=== PATIENT | female | born 1995 | race Caucasian/White ===

== ENCOUNTER 2020-06-08 21:09 | Emergency (ER) | payer BC, SELFPAY ==
[2020-06-08 21:13] VITALS: BP 133/88; PULSE 91; RESP 18; TEMP 37.2; O2SAT 98
--- NOTE | 2020-06-08 21:15 | DI.CT_ITS ---
EXAM: CT ABDOMEN PELVIS W INDICATION: left flank pain, recent uroscopy. COMPARISON: No exams were available for comparison TECHNIQUE: FINDINGS: CT examination of the abdomen and pelvis was performed with a bolus infusion of 100 cc of Omnipaque 3 50. Images obtained through the lung bases are unremarkable. Liver, spleen and pancreas appear normal . Gallbladder and bile ducts are CT normal. The adrenals appear normal bilaterally. Right kidney is normal. No right urinary tract calcificatio n or obstruction. On the left there is moderate hydronephrosis and there is a UPJ/proximal ureteral 3 millimeter obstru cting stone. No additional calcification seen. Urinary bladder is essentially empty.. Abdominal aorta is of normal diameter and no major vascular abnormality is seen. No abdominal wall hernia. No abdominal or pelvic adenopathy. LITIGATION SECRETARY structures appear intact. Appendix is normal. No evidence of diverticulitis or bowel obstruction. IMPRESSION: 3 millimeter left UPJ obstructing stone with moderate left hydronephrosis. No additional significant findings. RADIATION DOSE DELIVERED: 1,123.83mGy.cm Total DLP
--- NOTE | 2020-06-08 21:19 | W.ED.GENAD ---
Discharge Plan Disposition Patient Disposition: SANDRA OLIVEIRA ([facility]) Condition: Stable Discharge Details Chief Complaint: Abd Prob Clinical Impression: Kidney stone on left side, Urinary tract infection, Acute left flank pain ED Provider: Eugenio Fish Medical Decision Making 25-year-old female with a past medical history of recent suspected left-sided kidney stone and exploratory uroscopy at [facility] just this afternoon. She was discharged, she states that while there they did not find a stone, and think it might have passed. She states that they did give Dilaudid and Vicodin while there, and she has been taking the Vicodin as directed but acutely this evening while in our area the pain got acutely worse. She presented to the ER for further evaluation. Pain is in the left flank. She denies nausea vomiting or diarrhea. She denies fever or chills. She denies any other complaints at this time. She states that the pain is notably severe. She denies any vaginal discharge, or other urinary abnormalities. She has been taking Azo, and does note some discoloration in her urine. She denies any other complaints or modifying factors. Physical exam demonstrates evidence of left-sided flank tenderness, and left-sided abdominal tenderness. Vital signs notably stable. Reassuring. Differential at this time includes irritation secondary to exploratory uroscopy, new or less likely kidney stone, diverticulitis. We will get a CT scan, review records from [facility], manage the patient's pain, gently rehydrate and reassess. 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 Currently they are unable to get a hold of their on-call urologist Dr. Daniel. Unfortunately we also were unable to get a hold of our urologist Dr. Zhu here. Patient has specifically requested transfer to [facility] over [facility]. 10:20 PM Laboratory work-up shows a white count of 16, notable left shift. Renal function stable with creatinine does appear slightly high at 1.23. Urinalysis shows moderate leuk esterase, 20 WBCs, 50 RBCs, but is also nitrite and leukoesterase positive. With the patient's elevated white count, clear source of infection, mild tachycardia, the patient does meet Sirs/sepsis criteria. CAT scan has returned and demonstrates evidence of a 3 mm obstructing stone with evidence of mild to moderate hydronephrosis. Review demonstrates small amount of fat stranding as well. This is obviously concerning for an impacted/obstructed stone with infection. The patient does have an allergy to penicillins, amoxicillin, Flagyl. We will choose Levaquin for infection treatment. 750 mg IV. With no urology available here or at [facility], we did reach out and contact [facility] as well, and they state that they are currently full unable to accept any transfers. Patient has specifically requested transfer to the [facility] over [facility]. I have contacted the [facility] also at the patient's preference and request, and spoke with the ER physician first Dr. Gonzalez, and he requests we speak with neurology. I contacted , and after a prolonged discussion about the patient's findings, the criterion which she needs, the evidence of the stone, he has graciously accepted the patient for evaluation and treatment at the [facility]. Patient will be transferred by [facility]. I have extensively reviewed the treatment plan with the patient. I have addressed all patient concerns at this time. I have also discussed the plan with the admitting physician and they agree with the current assessment and plan and have agreed to assume responsibility for the patient. All parties demonstrate verbal understanding and agreement with our assessment and plan at this time. At time of transfer the patient was reassessed and continued to demonstrate current stability. No signs of acute respiratory distress requiring intubation, hemodynamic instability requiring pressor support, or rapidly declining mental status. The patient is stable for transport. FINDINGS: The lung bases are clear. The visualized bony structures are unremarkable. There is mild fatty infiltration of the liver. There is no liver mass. There is no intrahepatic biliary dilatation. No gallstones are seen within the gallbladder. The pancreas is unremarkable. The spleen is unremarkable. There is no adrenal mass. The right kidney is normal. There is mild hydronephrosis of the left kidney. No mass or calculi are seen. There is mild perinephric fat stranding. There is a 3 mm calculus involving the left proximal ureter. No additional ureteral calculi are seen. The bladder is nondistended. The aorta is normal in caliber. The IVC is normal in caliber. There is no retroperitoneal adenopathy. There is no mesenteric adenopathy. The stomach is unremarkable. The small bowel loops in the upper abdomen are nondistended with no bowel wall thickening. There is fluid seen throughout the colonic structures which can be seen with ileus. There is no thickening of the wall of the ascending, transverse or descending colons. Within the pelvis: A normal appendix is seen within the right lower quadrant. The uterus is unremarkable. There is a 2.4 cm left ovarian cyst. Several small right ovarian cysts are present. There is no free fluid within the pelvis. There is no inguinal adenopathy. There is no pelvic adenopathy. The rectosigmoid colon is unremarkable. IMPRESSION: 1. 3 mm calculus involving the left proximal ureter producing mild hydronephrosis of the left kidney. 2. Mild fatty infiltration of the liver. 3. Some distention of the right colon with fluid suggesting ileus. No evidence for bowel obstruction. 4. Small ovarian cysts. Thank you for allowing us to participate in the care of your patient. Dictated and Authenticated by: Garfield Coleman MD 06/08/2020 10:05 PM Eastern Time ([place] & [place]) HPI General Date/Time Provider Initiated Documentation: 06/08/20 21:15. HPI Narrative: 25-year-old female with a past medical history of recent suspected left-sided kidney stone and exploratory uroscopy at [facility] just this afternoon. She was discharged, she states that while there they did not find a stone, and think it might have passed. She states that they did give Dilaudid and Vicodin while there, and she has been taking the Vicodin as directed but acutely this evening while in our area the pain got acutely worse. She presented to the ER for further evaluation. Pain is in the left flank. She denies nausea vomiting or diarrhea. She denies fever or chills. She denies any other complaints at this time. She states that the pain is notably severe. She denies any vaginal discharge, or other urinary abnormalities. She has been taking Azo, and does note some discoloration in her urine. She denies any other complaints or modifying factors. Related Data Allergies Allergy/AdvReac Type Severity Reaction Status Date / Time amoxicillin Allergy Hives Unverified 06/08/20 21:16 metronidazole [From Flagyl] Allergy Other (See Unverified 06/08/20 21:16 Comment) Penicillins Allergy Hives Unverified 06/08/20 21:16 General Stated Complaint: Abd Prob DIANA: 3 Review of Systems All systems reviewed & are unremarkable except as noted in HPI and below PFSH Social History Smoking/Tobacco Use Status: Never Alcohol Intake: current Alcohol Intake frequency: holidays/special occasions only Drug use: Never Substance use type: does not use Do you feel safe at home: Yes Do you feel safe in your relationship?: Yes Exam Narrative Exam Narrative: 1.Const: Well-nourished, Well-developed, appearing stated age 2.Eyes: PERRL, no conjunctival injection, and symmetrical lids. 3.ENT: Atraumatic external nose and ears. Moist MM. Neck: Symmetric, trachea midline, No thyromegaly. 4.CVS: +S1/S2, No murmurs or gallops. Peripheral pulses 2+ and equal in all extremities. Brisk capillary refill in all extremities. 5.RESP: Unlabored respiratory effort. Clear to auscultation bilaterally. No wheezes rales or rhonchi 6.GI: Soft, nondistended, no hepatosplenomegaly. Mild left-sided abdominal pain, mild left-sided CVA tenderness. No suprapubic tenderness or pelvic tenderness. 7.MSK: Normocephalic/Atraumatic, Extremities w/o deformity or ttp No cyanosis or clubbing, Normal movement of all extremities 8.Skin: Warm, Dry. No rashes or lesions. 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 Sensation grossly intact, no focal neurologic deficits. 10.Psych: (AAO) x3. Appropriate mood and affect Course Vital Signs Vital signs: Vital Signs Temperature 37.2 C 06/08/20 21:13 Pulse 91 H 06/08/20 21:13 Respiratory Rate 18 06/08/20 21:13 Blood Pressure 133/88 06/08/20 21:13 Pulse Oximetry 98 06/08/20 21:13 Temperature 37.2 C 06/08/20 21:13 Temperature Source Temporal Artery Scan 06/08/20 21:13 Pulse 91 H 06/08/20 21:13 Respiratory Rate 18 06/08/20 21:13 Blood Pressure 133/88 06/08/20 21:13 Pulse Oximetry 98 06/08/20 21:13 Oxygen Delivery Method Room Air 06/08/20 21:13 Oxygen Flow Rate 0 06/08/20 21:13 Pain Level 9 06/08/20 21:13
[2020-06-08 21:26] LABS: Abs Immature Grans 0.04 10^3/uL (0.0-0.06); Absolute Basophil Count 0.05 10^3/uL (0.0-0.2); Absolute Eosinophil Count 0.03 10^3/uL (0.0-0.7); Absolute Lymphocyte Count 3.51 10^3/uL (1.2-3.4); Absolute Monocyte Count 0.73 10^3/uL (0.1-0.8); Absolute Neutrophil Count 11.59 10^3/uL (1.2-6.7); Basophils % 0.3; Eosinophils % 0.2; HCT 40.5 % (36.0-46.0); HGB 13.8 g/dL (11.2-15.7); Immature Grans % 0.3; MCH 30.2 pg (27.0-33.0); MCHC 34.1 % (32.0-36.0); MCV 88.6 fL (80-95); MPV 9.3 fL (8.0-11.0); Monocytes % 4.6; Neutrophils % 72.6; Platelet Count 441 10^3/uL (130-400); RBC 4.57 10^6/uL (3.93-5.22); RDW 11.6 % (11.7-14.6); RDW-SD 37.2 fL; WBC 15.97 10^3/uL (4.4-10.8)
[2020-06-08] MEDS: Ketorolac 30 MG/ML VIAL IVP (21:27)
[2020-06-08] MEDS: Omnipaque 350 MG/ML 100 ML BTL IJ (21:28)
[2020-06-08] MEDS: Normal Saline - Diluent 50 ML VIAL IV (21:28)
[2020-06-08 21:37] LABS: Bilirubin Negative (Negative); Blood Large (Negative); Clarity Sl Cloudy (Clear); Glucose Negative (Negative); Ketones Negative (Negative); Leukocyte Esterase Moderate (Negative); Nitrite Positive (Negative); Specific Gravity 1.015 (1.005-1.025); Urobilinogen 0.2 EU/dL (Up TO 0.2); pH 7.5 (5-8)
[2020-06-08 21:40] LABS: ALT 51 U/L (14-59); AST 23 U/L (15-37); Alkaline Phosphatase 54 U/L (46-116); BUN 14 mg/dL (7-18); Bilirubin, Total 0.5 mg/dL (0.2-1.0); CREATININE 1.23 mg/dL (0.55-1.02); Calcium 9.1 mg/dL (8.5-10.1); Chloride 101 mmol/L (98-107); Estimated GFR 52.78 (mL/min/1.73m2); Glucose 107 mg/dL (74-106); Potassium 3.6 mmol/L (3.5-5.1); Sodium 138 mmol/L (136-145); Total Protein 7.5 g/dL (6.4-8.2)
[2020-06-08] MEDS: Normal Saline 1,000 ML 1000 ML IV ×2 (21:47→22:49)
[2020-06-08 21:48] LABS: RBC 20-50 HPF (0-2)
[2020-06-08 21:49] LABS: Bacteria Moderate HPF (Negative); C & S Indicated? No/Sq. Contamination; Casts Negative LPF (Negative); Crystals Negative HPF (Negative); Epithelial Cells Many HPF (Negative); Mucus Negative (Negative)
[2020-06-08] MEDS: Ondansetron 4 MG/2 ML VIAL IVP (22:01)
[2020-06-08] MEDS: HYDROmorphone 2 MG/ML VIAL 1 MG IVP (22:02)
--- NOTE | 2020-06-08 22:05 | DI.VRAD_ITS ---
PROCEDURE INFORMATION: Exam: CT Abdomen And Pelvis With Contrast Exam date and time: 06/08/2020 9:17 PM Age: 25 years old Clinical indication: Abdominal pain; Patient HX: Left flank pain, recent uroscopy TECHNIQUE: Imaging protocol: Computed tomography of the abdomen and pelvis with intravenous contrast. COMPARISON: No relevant prior studies available. FINDINGS: The lung bases are clear. The visualized bony structures are unremarkable. There is mild fatty infiltration of the liver. There is no liver mass. There is no intrahepatic biliary dilatation. No gallstones are seen within the gallbladder. The pancreas is unremarkable. The spleen is unremarkable. There is no adrenal mass. The right kidney is normal. There is mild hydronephrosis of the left kidney. No mass or calculi are seen. There is mild perinephric fat stranding. There is a 3 mm calculus involving the left proximal ureter. No additional ureteral calculi are seen. The bladder is nondistended. The aorta is normal in caliber. The IVC is normal in caliber. There is no retroperitoneal adenopathy. There is no mesenteric adenopathy. The stomach is unremarkable. The small bowel loops in the upper abdomen are nondistended with no bowel wall thickening. There is fluid seen throughout the colonic structures which can be seen with ileus. There is no thickening of the wall of the ascending, transverse or descending colons. Within the pelvis: A normal appendix is seen within the right lower quadrant. The uterus is unremarkable. There is a 2.4 cm left ovarian cyst. Several small right ovarian cysts are present. There is no free fluid within the pelvis. There is no inguinal adenopathy. There is no pelvic adenopathy. The rectosigmoid colon is unremarkable. IMPRESSION: 1. 3 mm calculus involving the left proximal ureter producing mild hydronephrosis of the left kidney. 2. Mild fatty infiltration of the liver. 3. Some distention of the right colon with fluid suggesting ileus. No evidence for bowel obstruction. 4. Small ovarian cysts. Dictated and Authenticated by: Garfield Coleman MD. Ordering:IZABELA Becker MD
[2020-06-08] MEDS: levoFLOXacin 750 MG/150 ML BAG 100 MG IVPB (22:06)
[2020-06-08 22:15] VITALS: PULSE 90; RESP 16; O2SAT 98
[2020-06-08 22:23] VITALS: BP 135/82; PULSE 78; RESP 16; TEMP 37.3; O2SAT 98
--- NOTE | 2020-06-08 23:00 | RT.EKG_ITS ---
APPROVED REPORT Exam: Resting ECG Patient Location: E HR:66 bpm ECG Measurements Heart Rate 66 AXIS ME 166 P 55 QRSd 102 QRS 43 QT 403 T 10 QTc 422 <Conclusion> Sinus rhythm...normal P axis, V-rate 60- 99, No STEMI or other abnormalities
[2020-06-08 23:03] VITALS: BP 134/71; PULSE 81; RESP 18; O2SAT 98
--- NOTE | 2020-06-08 23:21 | NUR.NOTE ---
Nursing Note: Patient complained of chest pain with trouble breathing. Dr Fish at bedside to assess. Patient showing signs and symptoms of anxiety. Encouraged patient to slow her breathing. EKG performed and provided to Dr Fish. Reassured patient EKG was normal. Awaiting [facility] transport.
[2020-06-08 23:24] VITALS: BP 120/86; PULSE 84; RESP 18; O2SAT 99
--- NOTE | 2020-06-08 23:46 | NUR.NOTE ---
Nursing Note: Updated [facility] that patient is now leaving department with [facility] to give them an updated ETA.
== END 2020-06-08 23:50 | disposition short-term general hospital (02) ==
LOC: ER 22:45
PROVIDERS: Emergency Provider Student in an Organized Health Care Education/Training Program
DX: N13.6 Pyonephrosis (principal); Y83.8 Other surgical procedures as the cause of abnormal reaction of the patient, or of later complication, without mention of misadventure at the time of the procedure; R10.32 Left lower quadrant pain; Z87.442 Personal history of urinary calculi
CPT/HCPCS: 36415; 80053; 81025; 93005; 96361; 96365; 96366; 96375; 99285; 74177; 81003; 81015; 85025; 93010; J1885; J1956; J2405; J3490